=== PATIENT | male | born 1955 | race Caucasian/White ===

== ENCOUNTER → 2018-06-21 08:30 | Outpatient (CLI) | payer OTHER, SELFPAY ==
[2018-06-21 10:02] LABS: Absolute Lymphocyte Count 2.48 X10^3/ul (0.83-4.51); Absolute Neutrophil Count 4.1 X10^3/uL (2.0-7.7); Basophil# 0.03 X10^3/uL; Basophil% 0.4 % (0-1); Eosinophils% 2.7 % (0-5); Hematocrit 45.6 % (40-54); Hemoglobin 14.8 g/dl (13.0-16.5); Lymphocyte # 2.48 X10^3/ul (4.0); Lymphocyte % 33.9 % (19-41); Mean Corp Hgb Conc 32.5 g/gl (32-36); Mean Corpuscular Hgb 29.5 pg (27.0-32.0); Mean Platelet Vol. 10.5 fl (6.2-12.0); Monocyte# 0.48 X10^3/uL; Monocyte% 6.6 % (0-10); Neutrophil # 4.11 X10^3/uL (2.7-7.7); Neutrophil % 56.1 % (47-70); Platelet Count 259 K/mm3 (150-450); RBC Distribution Width CV 12.4 % (11.6-14.6); RBC Distribution Width SD 41.1 fl (35.1-43.9); Red Blood Count 5.01 M/mm3 (4.6-6.2); White Blood Count 7.3 K/mm3 (4.4-11.0)
[2018-06-21 10:03] LABS: POSITIVE COUNT NO; POSITIVE DIFFERENTIAL NO; POSITIVE MORPHOLOGY NO
[2018-06-21 10:27] LABS: Hemoglobin A1c 7.7 % (4.2-6.3)
[2018-06-21 10:31] LABS: Microalbumin,Random Urine 16.9 mg/L (NO RANGE EST.); Microalbumin:Creatinine Ratio 11.7 mg/g CRE (<30 mg/g CRE)
[2018-06-21 10:36] LABS: AST(SGOT) 24 U/L (15-37); Alanine Aminotransfer ALT/SGPT 40 U/L (16-61); Albumin, Serum 3.4 g/dL (3.2-5.0); Alkaline Phosphatase 61 U/L (45-117); Anion Gap 11 (5-15); BUN 18 mg/dL (7-18); BUN/Creat Ratio 21.9 RATIO (10-20); Bilirubin, Direct 0.11 mg/dL (0.00-0.30); Chloride 107 mmol/L (98-107); Cholesterol 113 mg/dL (200); Creatinine, Serum 0.82 mg/dL (0.70-1.30); EST Glomerular Filtration Rate 100 mL/min (>60); Est Glom Filt Rate - Afr Amer 121 mL/min (>60); Globulin 3.4 g/dL (2.2-4.2); Glucose 138 mg/dL (74-106); High Density Lipoprotein 36 mg/dL; Protein, Total 6.8 g/dL (6.4-8.2); Sodium Level 142 mmol/L (136-145); Thyroid Stim Hormone (TSH) 1.63 uIU/mL (0.358-3.74); Triglycerides 218 mg/dL; Very Low Density Lipoprotein 44 mg/dL (5-40)
--- OUTSIDE RECORDS SUMMARY | 2018-08-23 15:50 | XMS RPT_ITS ---
:1955 Author Organization [facility] Care Team Providers Name Role Phone Lowry, Tang Attending Unavailable PROBLEMS PROBLEMS No Problem Records FoundPROCEDURES PROCEDURES No Procedure Records FoundRESULTS RESULTS CBC W/DIFF, AUTOMATED Collected: 06/21/2018 Status: F Source: [place] 8:38 AM [facility] REPOSITORY TYPE CODE TESTS RESULT OUT OF RANGE REFERENCE UNITS LAB L100.1000 4.4-11.0 K/mm3 Normal WBC 7.3 LAB L100.1200 4.6-6.2 M/mm3 Normal RBC 5.01 LAB L100.1300 13.0-16.5 g/dl Normal HGB 14.8 LAB L100.1400 40-54 % Normal HCT 45.6 LAB L100.1500 80-94 fL Normal MCV 91.0 LAB L100.1600 27.0-32.0 pg Normal MCH 29.5 LAB L100.1700 32-36 g/gl Normal MCHC 32.5 LAB L100.1810 11.6-14.6 % Normal RDW CV 12.4 LAB L100.1820 35.1-43.9 fl Normal RDW SD 41.1 LAB L100.1900 150-450 K/mm3 Normal PLT 259 LAB L100.2000 6.2-12.0 fl Normal MPV 10.5 LAB L100.2100 47-70 % Normal NEUT% 56.1 LAB L100.2200 19-41 % Normal LY% 33.9 LAB L100.2300 0-10 % Normal MONO% 6.6 LAB L100.2400 0-5 % Normal EO% 2.7 LAB L100.2500 0-1 % Normal BASO% 0.4 LAB L100.2550 0.0-0.9 % Normal IM GRAN % 0.300 Result Comment: IG% - Immature Granulocytes (promyelocytes, myelocytes and metamyelocytes) > 1% indicates that a LEFT SHIFT is Present. LAB L100.2620 2.0-7.7 X10 3/uL Normal Absolute Neut 4.1 LAB L100.2720 0.83-4.51 X10 3/ul Normal Absolute Lymph 2.48 Performed By: #### L100.0100 #### [facility] [address] [place], [address] HEMOGLOBIN A1C Collected: 06/21/2018 Status: F Source: [place] 8:38 AM [facility] REPOSITORY TYPE CODE TESTS RESULT OUT OF RANGE REFERENCE UNITS LAB L501.9985 4.2-6.3 % High HGB A1C 7.7 Performed By: #### L501.9985 #### [facility] [address] [place], [place], [address] MICROALB:CREAT Collected: 06/21/2018 Status: F Source: [place] RATIO,RANDOM UR 8:38 AM [facility] REPOSITORY TYPE CODE TESTS RESULT OUT OF RANGE REFERENCE UNITS LAB L501.1200 NO RANGE EST. mg/dL Normal UR CREAT 145.00 LAB L502.0500 NO RANGE EST. mg/L Normal 16.9 MICROALBUMIN ,UR LAB L502.0600 <30 mg/g CRE mg/g CRE Normal 11.7 MALB:CREAT Performed By: #### L502.0250 #### [facility] [address] [place], [place], [address] BASIC METABOLIC Collected: 06/21/2018 Status: F Source: [place] PROFILE (BMP) 8:38 AM [facility] REPOSITORY TYPE CODE TESTS RESULT OUT OF RANGE REFERENCE UNITS LAB L501.0100 74-106 mg/dL High GLU 138 Result Comment: Fasting Glucose result greater than or equal to 126 mg/dL suggests DIABETES MELLITUS per A.D.A. criteria. Please note revised GLUCOSE reference range effective 2017. LAB L501.1000 7-18 mg/dL Normal BUN 18 LAB L501.1100 0.70-1.30 mg/dL Normal CREAT,SERUM 0.82 Result Comment: The validity of the calculated GFR AND GFRAA in patients over 70 years has not been determined. Clinical correlation is essential. LAB L501.1110 >60 mL/min Normal EST GFR 100 Result Comment: Non- GFR Calc LAB L501.1115 >60 mL/min Normal EST GFR - AA 121 Result Comment: GFR Calc LAB L501.1300 10-20 RATIO High BUN/CRE 21.9 LAB L501.2200 8.5-10.1 mg/dL CA Normal 9.0 LAB L501.5300 136-145 mmol/L NA Normal 142 LAB L501.5600 3.5-5.1 mmol/L K Normal 4.0 LAB L501.5900 98-107 mmol/L CL Normal 107 LAB L501.6100 21.0-32.0 mmol/L Normal CO2 24.0 LAB L501.6200 5-15 Normal GAP 11 Performed By: #### L500.2500, L500.3400, L500.4100, L501.9520 #### [facility] [address], [place], [id number] LIVER PROFILE Collected: 06/21/2018 Status: F Source: [place] FERRY 8:38 AM [facility] REPOSITORY TYPE CODE TESTS RESULT OUT OF RANGE REFERENCE UNITS LAB L501.1500 6.4-8.2 g/dL Normal T PROT 6.8 LAB L501.1800 3.2-5.0 g/dL Normal ALB 3.4 LAB L501.1950 2.2-4.2 g/dL Normal GLOB 3.4 LAB L501.4100 15-37 U/L Normal AST 24 LAB L501.4305 45-117 U/L Normal ALK P 61 LAB L501.4405 16-61 U/L Normal ALT 40 LAB L501.4600 0.20-1.00 mg/dL Normal T BILI 0.40 LAB L501.4700 0.00-0.30 mg/dL Normal D BILI 0.11 Performed By: #### L500.2500, L500.3400, L500.4100, L501.9520 #### [facility] [address] [facility] [place], [address] LIPID PROFILE Collected: 06/21/2018 Status: F Source: [place] 8:38 AM [facility] REPOSITORY TYPE CODE TESTS RESULT OUT OF RANGE REFERENCE UNITS LAB L501.4900 200 mg/dL Normal CHOL 113 Result Comment: <200 mg/dL Desirable 200-240 mg/dL Borderline >240 mg/dL High Risk LAB L501.5000 mg/dL High TRIG 218 Result Comment: The drugs N-Acetylcysteine and Metamizole may falsely depress this assay. Serum Triglycerides Reference Interval Normal <150 mg/dL Borderline high 150 - 199 mg/dL High 200 - 499 mg/dL Very High > or = 500 mg/dL LAB L501.6400 mg/dL Low HDL 36 Result Comment: The drugs N-Acetylcysteine and Metamizole may falsely depress this assay. Reference Range HDL <40 mg/dL Low HDL Cholesterol HDL >or= 60 mg/dL High HDL Cholesterol LAB L501.6500 0-130 mg/dL Normal LDL 33 LAB L501.6600 5-40 mg/dL High VLDL 44 Performed By: #### L500.2500, L500.3400, L500.4100, L501.9520 #### [facility] [address] [place], [place], [address] THYROID STIM HORMONE Collected: 06/21/2018 Status: F Source: [place] (TSH) 8:38 AM [facility] REPOSITORY TYPE CODE TESTS RESULT OUT OF RANGE REFERENCE UNITS LAB L501.9520 0.358-3.74 uIU/mL Normal TSH 1.63 Performed By: #### L500.2500, L500.3400, L500.4100, L501.9520 #### [facility] [address] [place], [address] PROGRESS Observed: 07/09/2017 Status: COMPLETED Source: [place] 3:33 PM [facility] REPOSITORY HNO ID: [id number] Author: Rohit Muse III Service: (none) Author Type: Physician Type: Progress Notes Filed: 07/10/2017 2:40 PM Note Text: OK?I agree Rohit Muse III, MD, FAAFP PROGRESS Observed: 07/09/2017 Status: COMPLETED Source: [place] 3:08 PM [facility] [place] REPOSITORY HNO ID: [id number] Author: Evelyn Mcpherson Service: (none) Author Type: (none) Type: Progress Notes Filed: 07/10/2017 2:40 PM Note Text: Spoke with patient, he has moved away for now, they want to return at some point, a family member is going to college, not sure when they will return (possibley October) and would like to stay on with Dr Muse, just out of town for awhile. PROGRESS Observed: 07/07/2017 Status: COMPLETED Source: [place] 3:18 PM [facility] REPOSITORY HNO ID: [id number] Author: Diann Gage) Jared Service: (none) Author Type: Industrial Relations Manager Type: Progress Notes Filed: 07/10/2017 2:40 PM Note Text: PHMA TEAMLET DOCUMENTATION Provider Action/FYI: patient needs appointment, labs are ordered, needs eye And foot exam, Needs colonoscopy PSR Action/FYI: patient needs appointment, eye exam schedule Thanks, Diann Coleman MA Teamlet has identified patient by name and date of . Team:Dr. Galindo Muse III, MD, NICKO Shanks, Diann Coleman MA, Tommy Conn LPN, Carlene Benoit CMA, Shannan Mcpherson PSR, Shannan Snow, RN,BSN, CPHQ, CCM, ? Last Office Visit:Visit date not found ? Next Office Visit: Visit date not found ? Last BP/Labs: Blood Pressure: Last 3 Encounter BP Readings: Date: BP: 12/25/2015 118/64 09/25/2015 118/58 06/26/2015 140/82 Lipids: Cholesterol, Total (mg/dL) Date Value 09/20/2015 105 03/23/2015 113 HDL Cholesterol (mg/dL) Date Value 09/20/2015 37 03/23/2015 39 LDL Cholesterol (mg/dL) Date Value 09/20/2015 42 03/23/2015 40 Triglyceride (mg/dL) Date Value 09/20/2015 129 03/23/2015 169 HGB A1C: Lab Results Component Value Date HBA1C 8.7 12/21/2015 HBA1C 8.1 09/20/2015 HBA1C 8.5 06/21/2015 TSH: No results found for: TSH) Care Gap: DM - Need Urine Albumin / NOT checked in last 12 months Needs dilated eye exam - HM overdue Plan: ? Confirm PCP / Status ? Type of appointment needed: Consultation Appointments: Labs, HM and Immunization: Labs: Albumin Creatinine Urine CMP HGB A1C Lipids Vitamin B12 Colon Cancer Screening Diabetic Eye Exam Diabetic Foot Exam Diann Coleman MA CNPTOUTREACH Observed: 07/07/2017 Status: COMPLETED Source: [place] 12:00 AM [facility] REPOSITORY Patient Outreach (FAMPWS) JOSE ELLIOTT ([id number]) 1955 M IPA Date Time Provider Department 07/07/17 DIANN COLEMAN) FAMPWS During your visit today, we recorded the following information about you: Diann Coleman MA 07/10/2017 2:40 PM Signed PHMA TEAMLET DOCUMENTATION Provider Action/FYI: patient needs appointment, labs are ordered, needs eye And foot exam, Needs colonoscopy PSR Action/FYI: patient needs appointment, eye exam schedule Thanks, Diann Coleman MA Teamlet has identified patient by name and date of . Team:Dr. Galindo Muse III, MD, NICKO Shanks, Diann Coleman MA, Tommy Conn LPN, Carlene Benoit CMA, Shannan Mcpherson PSR, Shannan Snow, RN,BSN, CPHQ, CCM, ? Last Office Visit:Visit date not found ? Next Office Visit: Visit date not found ? Last BP/Labs: Blood Pressure: Last 3 Encounter BP Readings: Date: BP: 12/25/2015 118/64 09/25/2015 118/58 06/26/2015 140/82 Lipids: Cholesterol, Total (mg/dL) Date Value 09/20/2015 105 03/23/2015 113 HDL Cholesterol (mg/dL) Date Value 09/20/2015 37 03/23/2015 39 LDL Cholesterol (mg/dL) Date Value 09/20/2015 42 03/23/2015 40 Triglyceride (mg/dL) Date Value 09/20/2015 129 03/23/2015 169 HGB A1C: Lab Results Component Value Date HBA1C 8.7 12/21/2015 HBA1C 8.1 09/20/2015 HBA1C 8.5 06/21/2015 TSH: No results found for: TSH) Care Gap: DM - Need Urine Albumin / NOT checked in last 12 months Needs dilated eye exam - HM overdue Plan: ? Confirm PCP / Status ? Type of appointment needed: Consultation Appointments: Labs, HM and Immunization: Labs: Albumin Creatinine Urine CMP HGB A1C Lipids Vitamin B12 Colon Cancer Screening Diabetic Eye Exam Diabetic Foot Exam MORENA [place] 07/10/2017 2:40 PM Signed Spoke with patient, he has moved away for now, they want to return at some point, a family member is going to college, not sure when they will return (october) and would like to stay on with Dr Muse, just out of town for awhile. Rohit Muse III MD 07/10/2017 2:40 PM Signed OK?I agree Rohit Muse III, MD, FAAFP Allergies As of Date: 07/07/2017 Noted Allergy Reaction ZITHROMAX (AZITHROMYCIN) 04/28/2005 6 - Diarrhea Comments: pt states that did does not work for him ZOCOR (SIMVASTATIN) 02/22/2010 Comments: myalgia environmental [Other] 04/08/2005 Date Reviewed: 09/25/2015 Reviewed by: Neena [facility] - Fully Assessed Reason for Visit: PHMA/Care Gap Outreach [[id number]] Primary Visit Diagnosis:Uncontrolled type 2 diabetes mellitus without complication, with long-term current use of insulin (HCC) [E11.65, Z79.4] Other Visit Diagnoses:Hyperlipidemia with target LDL less than 100 [E78.5] Essential hypertension, benign [I10] Statin intolerance [Z78.9] Order(s):ALBUMIN/CREAT RATIO RND UR [SQUACR] Order #: [id number] FUTURE HGB A1C [UUEAF8M] Order #: [id number] FUTURE LIPID PANEL BASIC [SQLIPB] Order #: [id number] FUTURE COMP METABOLIC PANEL [SQCMP] Order #: [id number] FUTURE Prescriptions as of 07/07/2017 Sig: BD INSULIN SYRINGE ULTRA-FINE* USE TWICE DAILY, USE ONE SYRI* HUMULIN N 100 UNIT/ML SUBCUTA* INJECT 35 UNITS SUBCUTANEOUSL* PIOGLITAZONE 30 MG TABLET TAKE ONE TABLET BY MOUTH EVER* LISINOPRIL 20 MG TABLET TAKE ONE TABLET BY MOUTH EVER* CITALOPRAM 40 MG TABLET TAKE ONE TABLET BY MOUTH EVER* METFORMIN 1,000 MG TABLET TAKE ONE TABLET BY MOUTH TWIC* ZOLPIDEM 10 MG TABLET TAKE ONE TABLET BY MOUTH NIGH* FLUTICASONE 50 MCG/ACTUATION * Use 2 Sprays in each nostril * ATORVASTATIN 10 MG TABLET 1 tablet by mouth every other* BLOOD SUGAR DIAGNOSTIC STRIPS Use as instructed once daily LANCETS Use as instructed for testing* BLOOD-GLUCOSE METER KIT 1 Each as needed. One Touch M* INSULIN SYRINGE-NEEDLE U-100 * 44 units before breakfast an* Problem List As Of Date 07/07/2017 Noted Resolved Diabetes mellitus type 2, uncontrolled, without*INVALID FOR* Other and unspecified hyperlipidemia [E78.5] INVALID FOR*01/20/2013 Adjustment disorder with depressed mood [F43.21]INVALID FOR*12/25/2014 PSYCHOSEXUAL DYSFUNC NOS [F52.9] INVALID FOR* Abdominal pain, generalized [R10.84] INVALID FOR*12/09/2013 Sleep apnea [G47.30] INVALID FOR* Hyperlipidemia with target LDL less than 100 [E*INVALID FOR* Essential hypertension, benign [I10] INVALID FOR* Anxiety and depression [F41.8] INVALID FOR* Statin intolerance [Z78.9] INVALID FOR* Vasomotor rhinitis [J30.0] INVALID FOR* Non morbid obesity due to excess calories [E66.*INVALID FOR* Disposition: Return in about 3 months (around 10/04/2017). Follow-up and Disposition History Recorded Encounter Status:Closed by DIANN COLEMAN on 07/10/17 ALLERGIES ALLERGIES No Allergies Records FoundENCOUNTERS ENCOUNTERS ADMIT/DISCHARGE ACCOUNT ADMITTING ENCOUNTER LOCATION SOURCE NUMBER CLASS 06/21/2018 [id number] [place] [facility] ing:MFPLAB Repository PAYERS PAYERS ENCOUNTER GUARANTOR PAYER SUBSCRIBER SOURCE 06/21/2018 Jose Chamberlain Primary FABIOLA EARLMIAH [id number] Insurance:[facility] icy Number: [address] [id number] Repository [address]Niw: [phone] Date:[id number] [phone] () [address] [address]QX: 06/21/2018 Secondary NOT GIVENUNK Renetta Insurance:SELF PAY [facility] Number: Effective Repository Date:2018-06-21
== END ==
PROVIDERS: Visit Provider Family Medicine
DX: E11.9 Type 2 diabetes mellitus without complications (principal); R53.83 Other fatigue
CPT/HCPCS: 36415; 80048; 80061; 80076; 82043; 82570; 83036; 84443; 85025

== ENCOUNTER → 2018-09-15 08:03 | Outpatient (CLI) | payer OTHER, SELFPAY ==
[2018-09-15 10:05] LABS: Absolute Lymphocyte Count 2.26 X10^3/ul (0.83-4.51); Basophil# 0.03 X10^3/uL; Basophil% 0.4 % (0-1); Eosinophil# 0.32 X10^3/uL; Eosinophils% 3.9 % (0-5); Hematocrit 43.9 % (40-54); Hemoglobin 14.4 g/dl (13.0-16.5); Lymphocyte # 2.26 X10^3/ul (4.0); Lymphocyte % 27.7 % (19-41); Mean Corp Hgb Conc 32.8 g/gl (32-36); Mean Corpuscular Hgb 29.6 pg (27.0-32.0); Mean Corpuscular Volume 90.3 fL (80-94); Mean Platelet Vol. 10.4 fl (6.2-12.0); Monocyte# 0.58 X10^3/uL; Monocyte% 7.1 % (0-10); Neutrophil # 4.95 X10^3/uL (2.7-7.7); Neutrophil % 60.7 % (47-70); Platelet Count 263 K/mm3 (150-450); RBC Distribution Width CV 12.2 % (11.6-14.6); RBC Distribution Width SD 39.8 fl (35.1-43.9); Red Blood Count 4.86 M/mm3 (4.6-6.2); White Blood Count 8.2 K/mm3 (4.4-11.0)
[2018-09-15 10:07] LABS: POSITIVE COUNT NO; POSITIVE DIFFERENTIAL NO; POSITIVE MORPHOLOGY NO
[2018-09-15 10:25] LABS: Microalbumin,Random Urine 20.5 mg/L (NO RANGE EST.); Microalbumin:Creatinine Ratio 12.3 mg/g CRE (<30 mg/g CRE)
[2018-09-15 10:37] LABS: Hemoglobin A1c 7.5 % (4.2-6.3)
[2018-09-15 10:49] LABS: AST(SGOT) 25 U/L (15-37); Alanine Aminotransfer ALT/SGPT 38 U/L (16-61); Albumin, Serum 3.5 g/dL (3.2-5.0); Alkaline Phosphatase 67 U/L (45-117); Anion Gap 9 (5-15); BUN 17 mg/dL (7-18); BUN/Creat Ratio 20.9 RATIO (10-20); Bilirubin, Direct 0.12 mg/dL (0.00-0.30); Calcium,Total 8.9 mg/dL (8.5-10.1); Chloride 105 mmol/L (98-107); Cholesterol 117 mg/dL (200); Creatinine, Serum 0.81 mg/dL (0.70-1.30); EST Glomerular Filtration Rate 101 mL/min (>60); Est Glom Filt Rate - Afr Amer 123 mL/min (>60); Globulin 3.1 g/dL (2.2-4.2); Glucose 174 mg/dL (74-106); High Density Lipoprotein 37 mg/dL; Potassium 4.4 mmol/L (3.5-5.1); Protein, Total 6.6 g/dL (6.4-8.2); Sodium Level 140 mmol/L (136-145); Triglycerides 226 mg/dL; Very Low Density Lipoprotein 45 mg/dL (5-40)
== END ==
PROVIDERS: Family Provider Family Medicine; PCP Family Medicine; Referring Provider Family Medicine; Visit Provider Family Medicine
DX: E11.9 Type 2 diabetes mellitus without complications (principal); R53.83 Other fatigue
CPT/HCPCS: 36415; 80048; 80061; 80076; 82043; 82570; 83036; 84443; 85025

== ENCOUNTER → 2019-03-21 10:18 | Outpatient (CLI) | payer MEDICARE, BC, SELFPAY ==
[2019-03-21 13:09] LABS: Anion Gap 5 (5-15); BUN 19 mg/dL (7-18); BUN/Creat Ratio 22.4 RATIO (10-20); Calcium,Total 9.1 mg/dL (8.5-10.1); Chloride 108 mmol/L (98-107); Cholesterol 89 mg/dL (200); Creatinine, Serum 0.85 mg/dL (0.70-1.30); EST Glomerular Filtration Rate 96 mL/min (>60); Est Glom Filt Rate - Afr Amer 117 mL/min (>60); Glucose 94 mg/dL (74-106); High Density Lipoprotein 42 mg/dL; Potassium 4.2 mmol/L (3.5-5.1); Sodium Level 141 mmol/L (136-145); Triglycerides 117 mg/dL; Very Low Density Lipoprotein 23 mg/dL (5-40)
[2019-03-21 13:21] LABS: Microalbumin,Random Urine 12.5 mg/L (NO RANGE EST.); Microalbumin:Creatinine Ratio 9.8 mg/g CRE (<30 mg/g CRE)
[2019-03-21 13:21] LABS: PSA,Total - Annual Screen 0.93 ng/mL (0.00-4.00)
== END ==
PROVIDERS: Urology; Family Provider Family Medicine; PCP Family Medicine; Referring Provider Family Medicine; Visit Provider Family Medicine
DX: E11.9 Type 2 diabetes mellitus without complications (principal); Z12.5 Encounter for screening for malignant neoplasm of prostate
CPT/HCPCS: 36415; 80048; 80061; 82043; 82570; 84153; G0103